=== PATIENT | female | born 1965 | race Caucasian/White ===

== ENCOUNTER 2019-02-04 10:12 | Emergency (ER) | payer MEDICARE, MEDICAID ==
[~2019-02-04] VITALS: Ht 154.9 cm; Wt 49.0 kg
[~2019-02-04 10:12] MED LIST: ACYCLOVIR 400400 MG; ACYCLOVIR 400400 MG PO; ATIVAN1 MG PO; BACTRIM DS TAB1 EACH PO; CALCIUM OYSTER500 MG; DIFLUCAN150 M1 PO; DIFLUCAN200 MG PO; FISH OIL 1,001000 MG; FLAGYL500 MG PO; HYDROCODONE-AP1 EAC6 PO; KEFLEX500 MG PO; MELATONIN3 MG; NAPROSYN500 MG PO; NEXIUM40 MG; NYSTATIN 100,0015 G1 TP; ONDANSETRON HCL4 M2 PO; SIMVASTATIN20 MG; TOPAMAX50 MG PO; TORADOL 10 MG T10 MG PO; TRANSDERM-SCO1 PATC1; VICODIN ES 7.51 EACH; VITAMIN D1000 UNI1; VITAMIN D1000 UNI1 PO; WELLBUTRIN 75 M75 M1 PO; ZOFRAN ODT4 MG PO
[2019-02-04 10:33] LABS: INFLUENZA B ANTIGEN None Detected (None Detect)
[2019-02-04 11:14] LABS: HEMATOCRIT 41.1 % (37.0-47.0); HEMOGLOBIN 13.7 gm/dL (12.0-15.0); MCH 31.1 pg (26.0-34.0); MCHC 33.5 g/dL (28.0-37.0); MPV 8.6 fl. (7.2-11.1); NUCLEATED RBCS 0 /100WBC; PLATELET COUNT* 212 thou/uL (150-400); RBC 4.42 mil/uL (4.20-5.00); RDW-CV 13.2 % (10.5-14.5); WBC 13.5 thou/uL (4.0-11.0)
[2019-02-04 11:33] LABS: ALBUMIN 3.5 g/dL (3.4-5.0); CALCIUM 8.3 mg/dL (8.5-10.1); CREATININE 1.2 mg/dL (0.6-1.3); POTASSIUM 3.5 mmol/L (3.5-5.1); TOTAL BILIRUBIN 0.4 mg/dL (<0.1-1.0); TOTAL PROTEIN 6.6 g/dL (6.4-8.2)
[2019-02-04] MEDS ORDERED: TESSALON PERLE100 MG PO (11:56)
[2019-02-04] MEDS ORDERED: ZPAK PO (11:56)
[2019-02-04] MEDS ORDERED: ONDANSETRON HCL4 M2 PO (11:56)
[2019-02-04 12:06] LABS: ABSOLUTE LYMPHOCYTES 1.2 thou/uL (0.8-5.3); ABSOLUTE MONOCYTES 1.4 thou/uL (0.0-1.2); ABSOLUTE NEUTROPHILS 10.9 thou/uL (1.6-8.1); ANISOCYTOSIS 1+; PLATELET ESTIMATE ADEQUATE; POIKILOCYTOSIS 1+
[2019-02-04] MEDS ORDERED: DIFLUCAN150 M1 PO (12:27)
[2019-02-04 12:33] VITALS: BP 128/61
== END 2019-02-04 12:34 | disposition home or self-care (01) ==
LOC: M.ERS 10:12
PROVIDERS: Nurse Practitioner Family
DX: J09.X1 Influenza due to identified novel influenza A virus with pneumonia (principal); Z85.41 Personal history of malignant neoplasm of cervix uteri; Z90.49 Acquired absence of other specified parts of digestive tract; Z98.890 Other specified postprocedural states; Z88.5 Allergy status to narcotic agent; Z88.8 Allergy status to other drugs, medicaments and biological substances